=== PATIENT | female | born 1945 | race Caucasian/White ===

== ENCOUNTER 2017-10-28 05:55 | Day surgery (SDC) | payer OTHER | END 2017-10-28 11:05 | disposition home or self-care (01) | LOC: AMB-ENDOS 05:55 | DX: D12.8 Benign neoplasm of rectum (principal); K62.89 Other specified diseases of anus and rectum ==

== ENCOUNTER 2017-10-28 12:16 | Outpatient (CLI) | payer OTHER | END 2017-10-28 15:37 | disposition home or self-care (01) | LOC: TOM 12:16 | DX: K62.1 Rectal polyp (principal); Z12.11 Encounter for screening for malignant neoplasm of colon; Z12.12 Encounter for screening for malignant neoplasm of rectum ==

== ENCOUNTER 2018-04-23 07:03 | Day surgery (SDC) | payer OTHER ==
[~2018-04-23 07:03] MED LIST: CATAFLAN; CRESTOR40 MG PO; DEXILANT60 MG PO; GABAPENTIN300 MG PO; ZETIA10 MG PO
== END 2018-04-23 12:00 | disposition home or self-care (01) ==
LOC: CIR.AMB 07:03
DX: D12.3 Benign neoplasm of transverse colon (principal); D12.4 Benign neoplasm of descending colon; K63.5 Polyp of colon; K56.50 Intestinal adhesions [bands], unspecified as to partial versus complete obstruction

== ENCOUNTER 2022-10-22 06:17 | Day surgery (SDC) | payer OTHER | END 2022-10-22 11:30 | disposition home or self-care (01) | LOC: AMB-ENDOS 06:17 | PROVIDERS: ATTEND Colon & Rectal Surgery | DX: K57.30 Diverticulosis of large intestine without perforation or abscess without bleeding (principal); K62.89 Other specified diseases of anus and rectum; K64.8 Other hemorrhoids; Z20.822 Contact with and (suspected) exposure to COVID-19 ==